=== PATIENT | male | born 1975 | race Caucasian/White ===

== ENCOUNTER 2019-05-10 06:12 | Emergency (ER) | payer MEDICAID ==
[~2019-05-10] VITALS: Ht 172.7 cm; Wt 110.0 kg
[2019-05-10] MEDS ORDERED: ketorolac tromethamine 15mg/ml inj. IV ONE (06:35)
[2019-05-10] MEDS ORDERED: normal saline 1000ML IV soln IVB ONE (06:35)
[2019-05-10] MEDS ORDERED: acetaminophen 325mg tablet PO ONE (06:35)
[2019-05-10] MEDS ORDERED: IBUP-1984 PO (08:27)
[2019-05-10 08:52] VITALS: BP 113/68
== END 2019-05-10 08:54 | disposition home or self-care (01) ==
LOC: ER 06:13
DX: B34.9 Viral infection, unspecified (principal); R05 Cough; R50.9 Fever, unspecified; R51 Headache; M79.10 Myalgia, unspecified site; F17.210 Nicotine dependence, cigarettes, uncomplicated; F12.90 Cannabis use, unspecified, uncomplicated; F15.90 Other stimulant use, unspecified, uncomplicated; Z56.0 Unemployment, unspecified; Z98.890 Other specified postprocedural states; Z79.899 Other long term (current) drug therapy
CPT/HCPCS: 71046; 87502; 87503; 96374; 99284; J1885; J7030

== ENCOUNTER 2023-10-27 21:20 | Emergency (ER) | payer MEDICAID ==
[~2023-10-27] VITALS: Ht 172.7 cm; Wt 104.5 kg
[~2023-10-27 21:20] MED LIST: IBUP-1984 PO
[2023-10-27 21:25] VITALS: TEMP 98.3
[2023-10-27 22:31] VITALS: BP 159/102; PULSE 80; RESP 14; O2SAT 99
== END 2023-10-28 00:56 | disposition left against medical advice (07) ==
LOC: ER 21:20
DX: M79.671 Pain in right foot (principal); Z53.21 Procedure and treatment not carried out due to patient leaving prior to being seen by health care provider
CPT/HCPCS: 73630